=== PATIENT | female | born 1970 | race Caucasian/White ===

== ENCOUNTER 2016-11-26 09:40 | Inpatient (IN) | payer MEDICARE ==
[2016-11-21 14:40] LABS: HEMATOCRIT 39.7 % (36.0-48.0); HEMOGLOBIN 13.4 g/dL (12.0-16.0)
--- NOTE | ~2016-11-26 | OP ---
Record Of Operation [facility] [address] [place]. [address] NAME: BRITNI CHEN : 68 STATUS : ADM IN PAT#: [id number] AGE: 46 ADM/REG DATE : 11/26/16 MR#: [id number] REPORT SERV DATE: 11/29/16 DICTATED BY: NATAN REYES DATE: 11/28/16 REPORT STATUS : Draft TRANSCRIBED BY: MODL DATE: 11/28/16 DATE OF PROCEDURE: 11/28/2016 POSTOPERATIVE DIAGNOSES: Progressive scoliosis flat back deformity, L1-S1 disk disease and stenosis, and lumbar radiculopathy. POSTOPERATIVE DIAGNOSES: Progressive scoliosis flat back deformity, L1-S1 disk disease and stenosis, and lumbar radiculopathy. PROCEDURE: 1. L1-S1 laminectomy and bilateral foraminotomies for decompression of the L1 through S1 nerve roots. 2. T12 to ilium posterolateral fusion. 3. Use of local morcellized autograft. 4. Use of allograft bone matrix. 5. Neuromonitoring. 6. Correction of coronal and sagittal plane deformity. 7. Completion of segmental spinal instrumentation, T10 to the ilium (pedicle screws from T10 to the ilium were placed on 11/26/2016 for the first stage to this procedure. Today, rods were placed over the screws and connected to the screws as well as placement of 2 crosslink devices). SURGEON: Natan Reyes DO. ANESTHESIA: General. ESTIMATED BLOOD LOSS: 600 mL. COMPLICATIONS: None. INDICATIONS: The patient is a 46-year-old with intractable back pain, gait disturbance, and progressive deformity. After discussion of risks and benefits, elected to proceed with surgery. PROCEDURE IN DETAIL: I identified the patient in the holding area. Consent was obtained. Went to the operating room. Underwent general anesthesia with endotracheal intubation. Prepped and draped in the usual sterile fashion. Operative safety pause was performed, then we proceeded with surgery. A midline longitudinal incision was made through the previous incision from the initial stage of the procedure. Previously placed sutures were removed. Self-retaining retractors were placed. A rongeur was used to remove spinous processes and underlying lamina L1 down to S1. Lester removed remaining lamina, underlying ligamentum flavum, and performed foraminotomies and facetectomies L1-S1, decompressed the L1-S1 nerve roots as well as to facilitate correction of coronal and sagittal plane deformity. Rods were then cut and contoured to appropriate shape and length, placed over the screws and the screws were reduced to the rods to correct both the sagittal and coronal plane deformity restoring normal lordotic curvature. Setscrews were placed and final tightened. Two Record Of Operation [facility] [id number] [place]. [address] NAME: BRITNI CHEN : 68 STATUS : ADM IN PAT#: [id number] AGE: 46 ADM/REG DATE : 11/26/16 MR#: [id number] REPORT SERV DATE: 11/29/16 DICTATED BY: NATAN REYES DATE: 11/28/16 REPORT STATUS : Draft TRANSCRIBED BY: CHET DATE: 11/28/16 crosslinks devices were added to connect the rods to provide additional torsional resistance. High-speed decorticating nelly was used to decorticate the remaining bony surfaces T10 to the ilium. Irrigation performed. Hemostasis achieved. Final AP and lateral fluoroscopic images were obtained to verify good placement of instrumentation and good correction of deformity. Subfascial drain was placed. Local morcellized autograft and allograft bone matrix were packed over the decorticated surfaces T10 to the ilium bilaterally. Subfascial drain was placed. A gram of vancomycin powder sprinkled over the surgical wound. Layered closure performed. Sterile dressings applied. The patient was awoken and extubated taken to the recovery room in stable condition. OPERATIVE FINDINGS: Scoliosis flat back deformity. L1-S1 disk disease and stenosis with severe nerve compression. No sustained neuromonitoring alerts occurred during the case. SWETHA/CHET Natan Reyes, / [id number]
--- NOTE | ~2016-11-26 | OP ---
Record Of Operation [facility] [address] [place]. [address] NAME: BRITNI CHEN : 68 STATUS : ADM IN PAT#: [id number] AGE: 46 ADM/REG DATE : 11/26/16 MR#: [id number] REPORT SERV DATE: 11/26/16 DICTATED BY: NATAN REYES DATE: 11/26/16 REPORT STATUS : Draft TRANSCRIBED BY: MODL DATE: 11/26/16 DATE OF PROCEDURE: 11/26/2016 PREOPERATIVE DIAGNOSES: Scoliosis with flat back deformity, L1-S1 degenerative disk disease and stenosis, lumbar radiculopathy. POSTOPERATIVE DIAGNOSES: Scoliosis with flat back deformity, L1-S1 degenerative disk disease and stenosis, lumbar radiculopathy. PROCEDURE: T10 to the ilium segmental spinal instrumentation, use of intraoperative O-arm CT scan with computer navigation and neuromonitoring. SURGEON: Natan Reyes DO ANESTHESIA: General. ESTIMATED BLOOD LOSS: 600 mL. COMPLICATIONS: None. INDICATIONS: The patient is a 46-year-old with progressive scoliosis and flat back deformity with lumbar radiculopathy. Failed conservative treatment. After discussion of risks and benefits, and progressive deformity, elected to proceed with surgery. PROCEDURE IN DETAIL: I identified the patient in the holding area. Consent was obtained. Went to the operating room. Underwent general anesthesia with endotracheal intubation. Prepped and draped in the usual sterile fashion. Operative safety pause was performed, then we proceeded. A midline longitudinal incision was made from T10 down to the sacrum. Paraspinous muscles were subperiosteally elevated to the tips of transverse processes. Self retaining retractors were placed. O-arm registration frame was placed on spinous process. O-arm was brought in for intraoperative CT scan. Computer registration materials were verified. Under computer guidance, pedicle screws from [employer] were placed from T10 to the sacrum and into the S2 alar iliac screw as well. O-arm was brought back in to verify good position of the instrumentation. At this point, due to the amount of blood loss, I decided to stage the procedure. Irrigation was performed. Hemostasis achieved. A gram of vancomycin powder sprinkled over the surgical wound. Layered closure performed over a drain. Sterile dressings applied. The patient awoke and extubated, taken to the recovery room in stable condition. OPERATIVE FINDINGS: Scoliosis with degenerative disk disease. No sustained neuromonitoring alerts occurred. PLAN: Let the patient equilibrate hemodynamically and return to the operating room on for the decompression and posterolateral fusion and connection of the screws to the rods. Record Of Operation [address] [address] NAME: BRITNI CHEN : 68 STATUS : ADM IN PAT#: [id number] AGE: 46 ADM/REG DATE : 11/26/16 MR#: [id number] REPORT SERV DATE: 11/26/16 DICTATED BY: NATAN REYES DATE: 11/26/16 REPORT STATUS : Draft TRANSCRIBED BY: CHET DATE: 11/26/16 SWETHA/CHET Natan Reyes DO / [id number] CC: Natan Reyes DO
--- NOTE | ~2016-11-26 | DS ---
Discharge Summary [facility] [address] [facility] [place]. [address] NAME: BRITNI CHEN : 68 STATUS : DIS IN PAT#: [id number] AGE: 46 ADM/REG DATE : 11/26/16 MR#: [id number] REPORT SERV DATE: 12/12/16 DICTATED BY: NATAN REYES DATE: 12/11/16 REPORT STATUS : Draft TRANSCRIBED BY: CHET DATE: 12/11/16 Data Collection from hospitalization DISCHARGE DIAGNOSES: 1. Scoliosis with flat back deformity. 2. L1-S1 degenerative disk disease and stenosis. 3. Lumbar radiculopathy. 4. Neuropathy. 5. Left ear hearing loss. 6. Osteoarthritis. 7. Irritable bowel syndrome. 8. Asthma. 9. Chronic obstructive pulmonary disease. 10.Fibromyalgia. 11.Gastroenteritis. 12.Anxiety and depression. CONSULTATIONS: Raisa Shine NP. PROCEDURES PERFORMED: 1. T10 to the ilium segmental spinal instrumentation using intraoperative O-arm CT scan with computer navigation and neuromonitoring, 11/26/2016. 2. L1-S1 laminectomy and bilateral foraminotomies for decompression of L1 through S1 nerve roots; T12 to ilium posterolateral fusion; use of local morcellized autograft; use of allograft bone matrix, neuromonitoring; correction of coronal and sagittal plane deformity; completion of segmental spinal instrumentation T10 to the ilium (pedicle screws from T10 to the ilium were placed on 11/26/2016 for the first stage to this procedure, rods were placed over the screws and connected to the screws as well as placement of two cross-link devices), 11/28/2016. PATHOLOGY: Vertebral bone and soft tissue lumbar spine-no specific microscopic abnormality. Bone and soft tissue, thoracic/lumbar spine excision-cartilage, bone and skeletal muscle. DISCHARGE MEDICATIONS: ProAir three puffs via inhaler twice a day, Lioresal 10 mg three times a day, Valium 10 mg four times a day, Neurontin 800 mg four times a day, Cortef 20 mg daily, Dilaudid 4 mg every four hours as needed, Phenergan 25 mg four times a day, Zoloft 100 mg twice a day. CONDITION AT DISCHARGE: Stable. DISPOSITION: The patient was discharged home on a regular diet with a protein shake with each meal and activities as instructed. She would follow up with Dr. Natan Reyes, 12/05/2016. She would follow up with Dr. Paptio Oconnor as instructed. HOSPITAL COURSE: This is a 46-year-old female, who had intractable back pain and paresthesias in both feet. She had failed multiple attempts at conservative treatment. She does have degenerative scoliosis as well as positive sagittal balance and has trouble with ambulating. Treatment options were discussed and it was elected to proceed with surgical Discharge Summary [address] [address] NAME: BRITNI CHEN : 68 STATUS : DIS IN PAT#: [id number] AGE: 46 ADM/REG DATE : 11/26/16 MR#: [id number] REPORT SERV DATE: 12/12/16 DICTATED BY: NATAN REYES DATE: 12/11/16 REPORT STATUS : Draft TRANSCRIBED BY: CHET DATE: 12/11/16 intervention. She was admitted to the hospital at this time for further evaluation and treatment. Upon admission, she was taken to the operating room, where she underwent the above-mentioned procedure. She tolerated this well and there were no complications. Postoperatively, she was seen by Raisa Shine regarding COPD and asthma. The patient also had hypotension and elevated glucose. White blood cell count was 19.1. The patient was on LOCOMOTIVE FIRER. This was going to be placed on hold until we could stabilize her blood pressure. She received a normal saline IV bolus. We were going to check a cortisol level that morning. Valium would be given as needed and we would hold this for sedation. She was on 3 L of nasal cannula at present. Albuterol would be continued daily. DuoNeb were added as needed for shortness of breath and wheezing. Continuous O2 saturation would be provided to keep her O2 saturation greater than 92%, especially while she was on a LOCOMOTIVE FIRER. It was felt that the patient most likely receive steroids and surgery. She does not have a history of being diabetic. D5 and half-normal saline infusion was discontinued. Hemoglobin A1c was going to be checked. IV fluids were changed to 1/2 normal saline. Zoloft was continued. Baclofen and Neurontin were continued following day. She was complaining of severe pain. She was hypotensive. ACTH test was going to be obtained. Lactic acid was negative. Procalcitonin was negative. Cortisol level was 0.7. White count had decreased to 10. Protonix was added. She was evaluated by Physical Therapy. On 11/28/2016, she was taken to the operating room, where she underwent the above-mentioned procedure. She tolerated this well and there were no complications. On the , she was reevaluated by Physical therapy. Systolic blood pressure ranged in the 90s-100s. She remained on IV steroids secondary to stress with surgery. These would likely be decreased the following day. White count was 14.3. On the , the patient was transfused. She felt like her pain was somewhat controlled with the LOCOMOTIVE FIRER. Discharge planning was performed. She did have some delirium from the Dilaudid during the night. She was transfused one unit of packed red blood cells. IV hydrocortisone was being given. Zoloft was continued. Neurontin was continued. She was encouraged to mobilize with Physical Therapy. Discharge planning continued as well. Her expected postop anemia had improved. We encouraged her to use incentive spirometry and albuterol aerosols were being provided. On 12/02/2016, she was up sitting on the side of the bed. She did have a bowel movement. Hydrocortisone was discontinued. Steroids were reduced. Discharge instructions were given. Due to her improved and stable condition, she was discharged home with the above-stated instructions. Information collected by: Rosalia Powell I submit the above information as my discharge summary. TYLER/CHET Natan Reyes, / [id number] CC: Natan Reyes, DO Discharge Summary [address] [address] NAME: BRITNI CHEN : 68 STATUS : DIS IN PAT#: [id number] AGE: 46 ADM/REG DATE : 11/26/16 MR#: [id number] REPORT SERV DATE: 12/12/16 DICTATED BY: NATAN REYES DATE: 12/11/16 REPORT STATUS : Draft TRANSCRIBED BY: SHANELL DATE: 12/11/16 Papito Oconnor M.D.
--- NOTE | ~2016-11-26 | CN ---
Consultation Report [facility] [address] [facility] [place]. [address] NAME: BRITNI CHEN : 68 STATUS : ADM IN PAT#: [id number] AGE: 46 ADM/REG DATE : 11/26/16 MR#: [id number] REPORT SERV DATE: 11/27/16 DICTATED BY: RAISA COLEMAN DATE: 11/26/16 REPORT STATUS : Draft TRANSCRIBED BY: MODL DATE: 11/26/16 CONSULTATION DATE OF CONSULTATION: 11/26/2016 REASON FOR CONSULTATION: Consulted for COPD and asthma and as I was seeing the patient also consulted for hypotension and elevated glucose. HISTORY: This is a pleasant 46-year-old female with a history of neuropathy, osteoarthritis, asthma, COPD, fibromyalgia, degenerative scoliosis with spinal stenosis in her thoracic region as well as anxiety and depression. She presents to Dr. Natan Reyes, with intractable back pain and paresthesias to the bilateral lower extremities. She does have a history of degenerative scoliosis with trouble with ambulation at home. She is presently status post L1-S1 laminectomy with T10 to ilium fusion on 11/26/2016. The hospitalist group has been consulted to help manage her asthma as well as presently hypotension and an elevated glucose. The patient's history was obtained through careful interview with the patient coupled with Novavax review and ChartMaxx which is of minimal tonight. PAST MEDICAL HISTORY: 1. Neuropathy. 2. Left ear hearing loss. 3. Osteoarthritis. 4. Irritable bowel syndrome. 5. Colon spasms. 6. Asthma. 7. COPD. 8. Fibromyalgia. 9. Spinal stenosis of the thoracic region. 10.Gastroenteritis. 11.Anxiety. 12.Depression. 13.Degenerative scoliosis. 14.Noted last menstrual period approximately one week ago. 15.Cervical disc disease and stenosis. HOME MEDICATIONS: 1. ProAir HFA 3 puffs inhalation twice a day. 2. Baclofen 10 mg p.o. three times daily. 3. Valium 10 mg p.o. four times a day. 4. Voltaren 75 mg p.o. twice a day. 5. Neurontin 800 mg p.o. four times a day. 6. Phenergan 25 mg p.o. four times a day p.r.n. nausea. Consultation Report [facility] [address] [place]. [address] NAME: BRITNI CHEN : 68 STATUS : ADM IN PAT#: [id number] AGE: 46 ADM/REG DATE : 11/26/16 MR#: [id number] REPORT SERV DATE: 11/27/16 DICTATED BY: RAISA COLEMAN DATE: 11/26/16 REPORT STATUS : Draft TRANSCRIBED BY: MODL DATE: 11/26/16 7. Zoloft 100 mg p.o. twice a day. ALLERGIES: TO: 1. AMOXICILLIN. 2. PENICILLIN. 3. BACTRIM. SOCIAL HISTORY: The patient is for approximately 14 years, lives in a single-level home. She has to use a cane due to her severe scoliosis. She was a previous smoker, last use was 11/20/2016 for which she states she has now quit. No alcohol or illicit drug use. She has six children between her and her and six grand-children. FAMILY HISTORY: 1. Mother at 39 years old from cancer. 2. Father at age 72 with CHF. 3. Brother is . 4. One sister which is alive and healthy. SURGICAL HISTORY: 1. Left ear surgery x2 from a blunt force injury. 2. Head trauma as a child approximately 0937-0852. 3. Left ovary cyst removed in 1994. REVIEW OF SYSTEMS: Negative other than what is included in HPI. The patient is drowsy but she is alert and oriented. No complaints of shortness of breath. No nausea or vomiting. No abdominal pain. No chest pain. No fever. Displays no agitation or confusion. She is on a LACE MENDER morphine for pain control postoperatively. PHYSICAL EXAMINATION: VITAL SIGNS: From today blood pressure initially noted by nurse at 79/44 for which the patient received normal saline 500 mL bolus of fluid and her pressure is now 97/35, heart rate of 80, respiratory rate of 14, O2 saturation 93% on 3 L nasal cannula. GENERAL: This is a very pleasant 46-year-old female, resting in bed. No acute distress. She is very sleepy but she answers appropriately when asked questions. NEURO: Her head is atraumatic, normocephalic. She is alert and oriented x3. When awakened, cranial nerves are intact. Mood is appropriate. NECK: Supple. Trachea is midline. No JVD noted. No obvious thyromegaly or lymphadenopathy. EENT: Her sclerae are nonicteric. Her pupils are equal, reactive to light. Her nares are patent. Her mucous membranes are moist. Her tongue is midline. No deviation. Soft palate rises equally on phonation. CHEST: No pain with palpation. LUNGS: Clear to auscultation bilaterally. She has normal respiratory effort but she is diminished in the bases. I have instructed her on use of an incentive spirometer q.1 hour Consultation Report [facility] [id number] [place]. [address] NAME: BRITNI CHEN : 68 STATUS : ADM IN PAT#: [id number] AGE: 46 ADM/REG DATE : 11/26/16 MR#: [id number] REPORT SERV DATE: 11/27/16 DICTATED BY: RAISA COLEMAN DATE: 11/26/16 REPORT STATUS : Draft TRANSCRIBED BY: CHET DATE: 11/26/16 while awake to prevent atelectasis and pneumonia. She has no increased work of breathing with conversation. She is on O2 at 3 L. CARDIOVASCULAR: S1, S2. No obvious murmurs, rubs, or gallops. She displays a regular rhythm on defensive telemetry without ectopy, rate is at 80. ABDOMEN: Soft, nontender. She does have hypoactive bowel sounds. No palpable organomegaly. Last bowel movement was 11/26/2016. EXTREMITIES: Normal distal pulses. No calf tenderness. No edema. She has bilateral TEDs and SCDs in place for DVT prophylaxis. SKIN: Warm and dry. No unusual rashes or lesions. Normal color and turgor. PSYCH: The patient is pleasant and cooperative. Appropriate mood and affect although she does have a history of depression. SURGICAL WOUND SITE: Dressing is clean, dry, and intact. She has a Davol drain that is compressed with sanguinous drainage noted. LABORATORY DATA: Sodium 141, potassium 3.7, chloride 111, BUN 11, creatinine 0.81, GFR 100, glucose 164, calcium 8.5, white blood cell 19.1, hemoglobin 11.9, hematocrit 34.9, platelets 340. She did have an x-ray on 11/26/2016 that showed shallow inspiration with minimal basilar atelectasis. Otherwise, no acute abnormality. The patient's PCP who manages her healthcare is Papito Oconnor in [place], [place]. ASSESSMENT/PLAN: 1. Hypotension. Aware. The patient is postop from a lumbar laminectomy. She has been on a LACE MENDER. The skin care therapist on hold until we can stabilize her blood pressure. She is receiving a normal saline IV bolus. We will also check a cortisol level this a.m., and she is on numerous medications for her scoliosis. We will make her Valium p.r.n. and to hold for sedation. 2. Chronic obstructive pulmonary disease and asthma. We are aware the patient is not on oxygen at home. Presently, she is on 3 L nasal cannula. We will continue her albuterol daily as taken at home. We will add DuoNeb p.r.n. for shortness of breath and wheezing. She will be on continuous O2 saturation to keep her O2 sats 92% or greater especially while she is on LACE MENDER. 3. Elevated glucose. The patient probably most likely had steroids in surgery. She does not have a history of being diabetic. We will check a blood sugar at 2 a.m., and staff can call if the blood sugar is greater than 150. She has D5 and half-normal saline infusion for IV fluids, and we will discontinue that, and we will check a hemoglobin A1c this morning, place her on electrolyte protocol and change her IV fluid to one-half normal saline since her previous sodium was 141. 4. Depression. Aware. We will continue her daily dose of Zoloft. 5. The patient has a history of neuropathy, severe degenerative scoliosis, aware. She is on baclofen and Neurontin daily. We will continue both medications and as noted before, we will make her Valium p.r.n. as needed. 6. A.M. labs; BMP, magnesium, phosphorus, CBC, hemoglobin A1c, cortisols level, and EKG. The hospitalist group would like to thank you for this consultation and let us know if we can be of further assistance. Consultation Report [facility] [id number] [place]. [address] NAME: BRITNI CHEN : 68 STATUS : ADM IN [facility]#: [id number] AGE: 46 ADM/REG DATE : 11/26/16 MR#: [id number] REPORT SERV DATE: 11/27/16 DICTATED BY: RAISA COLEMAN DATE: 11/26/16 REPORT STATUS : Draft TRANSCRIBED BY: CHET DATE: 11/26/16 /CHET Raisa Coleman NP / [id number] CC: Natan Reyes DO
--- NOTE | ~2016-11-26 | PREOPHP ---
PreOp History and Physical [facility] [address] [place]. [address] NAME: BRITNI CHEN : 68 STATUS : ADM IN PAT#: [id number] AGE: 46 ADM/REG DATE : 11/26/16 MR#: [id number] REPORT SERV DATE: 11/26/16 DICTATED BY: NATAN DAVIES DATE: 11/26/16 REPORT STATUS : Draft TRANSCRIBED BY: CHET DATE: 11/26/16 CHIEF COMPLAINT: Back pain. HISTORY OF PRESENT ILLNESS: The patient is a 46-year-old female with intractable back pain and paresthesias into both feet. She has failed multiple attempts at conservative treatment including medications, physical therapy, steroid injections. She does have a degenerative scoliosis as well as positive sagittal balance and has trouble with ambulating. After discussion of risks and benefits, she elected to proceed with surgical intervention. REVIEW OF SYSTEMS: She denies chest pain, shortness of breath, and bowel or bladder changes. ALLERGIES: AMOXICILLIN AND PENICILLIN. HOME MEDICATIONS: Baclofen, Valium, diclofenac, gabapentin, ProAir, promethazine, sertraline. FAMILY HISTORY: Noncontributory. PAST MEDICAL HISTORY: Includes anxiety, osteoarthritis, depression, and asthma. PHYSICAL EXAMINATION: VITAL SIGNS: Height 5 feet 4 inches, weight 149. BMI 25.6. GENERAL: The patient is healthy appearing, in no acute distress. PSYCH: Alert and oriented x3. Normal mood and affect. Gait is antalgic. VASCULAR: No extremity swelling. SPINE: She is forward flexed. HEART: Regular rate and rhythm. LUNGS: Clear to auscultation. ABDOMEN: Soft, nontender, nondistended. Good bowel sounds. BREASTS AND RECTAL: Both deferred. NEUROLOGIC: Strength in lower extremities remains globally intact. No focal deficits. IMAGING: The patient does have scoliosis with a positive sagittal balance. She has diffuse degenerative disk disease throughout the lumbar spine. ASSESSMENT: Cervical disk disease and stenosis with scoliosis and a positive sagittal balance, intractable back pain, gait disturbance. PLAN: The patient presents today for surgical intervention. Consent was obtained. All questions were answered. She is ready to proceed with surgical intervention. SWETHA/CHET Natan Lyman PreOp History and Physical [address] [address] NAME: BRITNI CHEN : 68 STATUS : ADM IN PAT#: [id number] AGE: 46 ADM/REG DATE : 11/26/16 MR#: [id number] REPORT SERV DATE: 11/26/16 DICTATED BY: NATAN DAVIES DATE: 11/26/16 REPORT STATUS : Draft TRANSCRIBED BY: MODL DATE: 11/26/16 DO Eric / [id number] CC: DO Papito Rollins M.D.
[~2016-11-26 09:40] MED LIST: LIOR10 PO; NEUR800 PO; PR25 PO; PROAIR HFA INH; VALIUM10 MG PO; VOLT75 PO; ZOL100 PO
[2016-11-26 17:20] LABS: BASOPHILS 0.1 %; BASOPHILS ABSOLUTE 0.02 10/3/uL (0.0-0.16); EOSINOPHILS 0.2 %; EOSINOPHILS ABSOLUTE 0.03 10/3/uL (0.0-0.53); HEMOGLOBIN 11.9 g/dL (12.0-16.0); IMMATURE GRANULOCYTES 0.8 %; IMMATURE GRANULOCYTES ABSOLUTE 0.16 10/3/uL (0.0-0.11); LYMPHOCYTES 4.9 %; LYMPHOCYTES ABSOLUTE 0.94 10/3/uL (0.67-4.30); MEAN CORPUS HGB CONC 34.1 g/dL (32.0-36.0); MEAN CORPUSCULAR HEMOGLOB 32.5 pg (26.0-34.0); MEAN CORPUSCULAR VOLUME 95.4 fL (80-100); MEAN PLATELET VOLUME 9.4 fL (9.2-13.0); MONOCYTES 0.9 %; MONOCYTES ABSOLUTE 0.18 10/3/uL (0.21-1.20); NEUTROPHILS 93.1 %; NEUTROPHILS ABSOLUTE 17.76 10/3/uL (2.02-8.40); PLATELET COUNT 240 10/3/uL (150-400); RBC DISTRIBUTION WIDTH 15.2 % (12.0-16.0); RED CELL COUNT 3.66 10/6/uL (4.0-5.6); WHITE BLOOD CELLS 19.1 10/3/uL (4.5-10.5)
[2016-11-26 17:22] LABS: HEMATOCRIT 34.9 % (36.0-48.0); MANUAL DIFF NO %
[2016-11-26 17:31] LABS: BUN (BLOOD UREA NITROGEN) 11 MG/DL (6-23); CHLORIDE, SERUM 111 MMOL/L (96-112); CO2 (CARBON DIOXIDE) 26 MMOL/L (24-34); CREATININE 0.81 MG/DL (0.55-1.02); GFR AFRICAN AMERICAN 100 ML/MIN (>=60); GFR NON AFRICAN AMERICAN 86 ML/MIN (>=60); GLUCOSE, SERUM 164 MG/DL (60-99); POTASSIUM, SERUM 3.7 MMOL/L (3.5-5.3); SODIUM, SERUM 141 MMOL/L (135-148)
[2016-11-26 17:32] LABS: CALCIUM, SERUM 8.5 MG/DL (8.5-10.4)
[2016-11-27 04:43] LABS: BASOPHILS 0.1 %; BASOPHILS ABSOLUTE 0.01 10/3/uL (0.0-0.16); EOSINOPHILS 0.1 %; EOSINOPHILS ABSOLUTE 0.01 10/3/uL (0.0-0.53); HEMATOCRIT 28.9 % (36.0-48.0); HEMOGLOBIN 9.6 g/dL (12.0-16.0); IMMATURE GRANULOCYTES 0.3 %; IMMATURE GRANULOCYTES ABSOLUTE 0.03 10/3/uL (0.0-0.11); LYMPHOCYTES 11.5 %; LYMPHOCYTES ABSOLUTE 1.17 10/3/uL (0.67-4.30); MANUAL DIFF NO %; MEAN CORPUS HGB CONC 33.2 g/dL (32.0-36.0); MEAN CORPUSCULAR HEMOGLOB 32.4 pg (26.0-34.0); MEAN CORPUSCULAR VOLUME 97.6 fL (80-100); MEAN PLATELET VOLUME 9.6 fL (9.2-13.0); MONOCYTES 5.5 %; MONOCYTES ABSOLUTE 0.56 10/3/uL (0.21-1.20); NEUTROPHILS 82.5 %; NEUTROPHILS ABSOLUTE 8.42 10/3/uL (2.02-8.40); PLATELET COUNT 199 10/3/uL (150-400); RBC DISTRIBUTION WIDTH 15.4 % (12.0-16.0); RED CELL COUNT 2.96 10/6/uL (4.0-5.6); WHITE BLOOD CELLS 10.2 10/3/uL (4.5-10.5)
[2016-11-27 04:58] LABS: BUN (BLOOD UREA NITROGEN) 8 MG/DL (6-23); CALCIUM, SERUM 7.6 MG/DL (8.5-10.4); CHLORIDE, SERUM 113 MMOL/L (96-112); CO2 (CARBON DIOXIDE) 28 MMOL/L (24-34); CREATININE 0.61 MG/DL (0.55-1.02); GFR AFRICAN AMERICAN 125 ML/MIN (>=60); GFR NON AFRICAN AMERICAN 108 ML/MIN (>=60); PHOSPHORUS, SERUM 2.9 MG/DL (2.5-4.5); POTASSIUM, SERUM 4.4 MMOL/L (3.5-5.3); SODIUM, SERUM 145 MMOL/L (135-148)
[2016-11-27 05:00] LABS: GLUCOSE, SERUM 93 MG/DL (60-99)
[2016-11-27 06:10] LABS: PROCALCITONIN <0.05 ng/mL (<0.5)
[2016-11-28 04:12] LABS: BASOPHILS 0.1 %; BASOPHILS ABSOLUTE 0.01 10/3/uL (0.0-0.16); EOSINOPHILS 0 %; HEMATOCRIT 26.2 % (36.0-48.0); HEMOGLOBIN 8.9 g/dL (12.0-16.0); IMMATURE GRANULOCYTES 0.3 %; IMMATURE GRANULOCYTES ABSOLUTE 0.03 10/3/uL (0.0-0.11); LYMPHOCYTES 3.6 %; LYMPHOCYTES ABSOLUTE 0.41 10/3/uL (0.67-4.30); MEAN CORPUSCULAR HEMOGLOB 32.5 pg (26.0-34.0); MEAN CORPUSCULAR VOLUME 95.6 fL (80-100); MEAN PLATELET VOLUME 9.7 fL (9.2-13.0); MONOCYTES ABSOLUTE 0.45 10/3/uL (0.21-1.20); NEUTROPHILS ABSOLUTE 10.46 10/3/uL (2.02-8.40); PLATELET COUNT 190 10/3/uL (150-400); RBC DISTRIBUTION WIDTH 15.2 % (12.0-16.0); RED CELL COUNT 2.74 10/6/uL (4.0-5.6); WHITE BLOOD CELLS 11.4 10/3/uL (4.5-10.5)
[2016-11-28 04:15] LABS: MANUAL DIFF NO %
[2016-11-28 04:25] LABS: CHLORIDE, SERUM 108 MMOL/L (96-112); CO2 (CARBON DIOXIDE) 27 MMOL/L (24-34); CREATININE 0.61 MG/DL (0.55-1.02); GFR AFRICAN AMERICAN 125 ML/MIN (>=60); GFR NON AFRICAN AMERICAN 108 ML/MIN (>=60); POTASSIUM, SERUM 3.9 MMOL/L (3.5-5.3); SODIUM, SERUM 142 MMOL/L (135-148)
[2016-11-28 04:27] LABS: BUN (BLOOD UREA NITROGEN) 4 MG/DL (6-23); CALCIUM, SERUM 8.6 MG/DL (8.5-10.4); GLUCOSE, SERUM 122 MG/DL (60-99)
[2016-11-28 10:54] LABS: HEMOGLOBIN 7.7 g/dL (12.0-16.0)
[2016-11-28 10:55] LABS: HEMATOCRIT 22.7 % (36.0-48.0)
[2016-11-28 11:01] LABS: BASOPHILS 0.1 %; BASOPHILS ABSOLUTE 0.01 10/3/uL (0.0-0.16); EOSINOPHILS 0.1 %; EOSINOPHILS ABSOLUTE 0.01 10/3/uL (0.0-0.53); HEMATOCRIT 21.5 % (36.0-48.0); HEMOGLOBIN 7.4 g/dL (12.0-16.0); IMMATURE GRANULOCYTES 0.5 %; IMMATURE GRANULOCYTES ABSOLUTE 0.07 10/3/uL (0.0-0.11); LYMPHOCYTES 3.9 %; LYMPHOCYTES ABSOLUTE 0.55 10/3/uL (0.67-4.30); MANUAL DIFF NO %; MEAN CORPUS HGB CONC 34.4 g/dL (32.0-36.0); MEAN CORPUSCULAR HEMOGLOB 32.7 pg (26.0-34.0); MEAN CORPUSCULAR VOLUME 95.1 fL (80-100); MEAN PLATELET VOLUME 8.8 fL (9.2-13.0); MONOCYTES 3.4 %; MONOCYTES ABSOLUTE 0.49 10/3/uL (0.21-1.20); NEUTROPHILS ABSOLUTE 13.14 10/3/uL (2.02-8.40); PLATELET COUNT 173 10/3/uL (150-400); RBC DISTRIBUTION WIDTH 15.5 % (12.0-16.0); RED CELL COUNT 2.26 10/6/uL (4.0-5.6); WHITE BLOOD CELLS 14.3 10/3/uL (4.5-10.5)
[2016-11-28 11:15] LABS: BUN (BLOOD UREA NITROGEN) 5 MG/DL (6-23); CALCIUM, SERUM 7.7 MG/DL (8.5-10.4); CHLORIDE, SERUM 112 MMOL/L (96-112); CO2 (CARBON DIOXIDE) 29 MMOL/L (24-34); CREATININE 0.54 MG/DL (0.55-1.02); GFR AFRICAN AMERICAN 130 ML/MIN (>=60); GFR NON AFRICAN AMERICAN 112 ML/MIN (>=60); POTASSIUM, SERUM 4.2 MMOL/L (3.5-5.3); SODIUM, SERUM 144 MMOL/L (135-148)
[2016-11-28 11:16] LABS: GLUCOSE, SERUM 157 MG/DL (60-99)
[2016-11-28 15:03] LABS: HEMOGLOBIN 7.2 g/dL (12.0-16.0)
[2016-11-29 04:27] LABS: BASOPHILS 0.1 %; BASOPHILS ABSOLUTE 0.01 10/3/uL (0.0-0.16); EOSINOPHILS 0 %; IMMATURE GRANULOCYTES 0.2 %; IMMATURE GRANULOCYTES ABSOLUTE 0.03 10/3/uL (0.0-0.11); LYMPHOCYTES 5.9 %; MEAN CORPUS HGB CONC 33.9 g/dL (32.0-36.0); MEAN CORPUSCULAR HEMOGLOB 32.3 pg (26.0-34.0); MEAN CORPUSCULAR VOLUME 95.2 fL (80-100); MEAN PLATELET VOLUME 9.7 fL (9.2-13.0); MONOCYTES 5.8 %; MONOCYTES ABSOLUTE 0.78 10/3/uL (0.21-1.20); NEUTROPHILS ABSOLUTE 11.87 10/3/uL (2.02-8.40); PLATELET COUNT 160 10/3/uL (150-400); RBC DISTRIBUTION WIDTH 15.1 % (12.0-16.0); RED CELL COUNT 1.89 10/6/uL (4.0-5.6); WHITE BLOOD CELLS 13.5 10/3/uL (4.5-10.5)
[2016-11-29 04:28] LABS: HEMOGLOBIN 6.1 g/dL (12.0-16.0)
[2016-11-29 04:29] LABS: MANUAL DIFF NO %
[2016-11-29 04:52] LABS: BUN (BLOOD UREA NITROGEN) 4 MG/DL (6-23); CALCIUM, SERUM 7.8 MG/DL (8.5-10.4); CHLORIDE, SERUM 108 MMOL/L (96-112); CO2 (CARBON DIOXIDE) 30 MMOL/L (24-34); CREATININE 0.51 MG/DL (0.55-1.02); GFR AFRICAN AMERICAN 133 ML/MIN (>=60); GFR NON AFRICAN AMERICAN 115 ML/MIN (>=60); GLUCOSE, SERUM 122 MG/DL (60-99); POTASSIUM, SERUM 4.1 MMOL/L (3.5-5.3); SODIUM, SERUM 142 MMOL/L (135-148)
[2016-11-30 00:09] LABS: HEMATOCRIT 22.6 % (36.0-48.0); HEMOGLOBIN 7.9 g/dL (12.0-16.0)
[2016-11-30 04:31] LABS: BASOPHILS 0 %; EOSINOPHILS 0 %; HEMATOCRIT 21.6 % (36.0-48.0); HEMOGLOBIN 7.5 g/dL (12.0-16.0); IMMATURE GRANULOCYTES 0.3 %; IMMATURE GRANULOCYTES ABSOLUTE 0.03 10/3/uL (0.0-0.11); LYMPHOCYTES 10.4 %; LYMPHOCYTES ABSOLUTE 1.04 10/3/uL (0.67-4.30); MEAN CORPUS HGB CONC 34.7 g/dL (32.0-36.0); MEAN CORPUSCULAR HEMOGLOB 31.3 pg (26.0-34.0); MEAN PLATELET VOLUME 9.5 fL (9.2-13.0); MONOCYTES 6.5 %; MONOCYTES ABSOLUTE 0.65 10/3/uL (0.21-1.20); NEUTROPHILS 82.8 %; NEUTROPHILS ABSOLUTE 8.26 10/3/uL (2.02-8.40); PLATELET COUNT 170 10/3/uL (150-400); RBC DISTRIBUTION WIDTH 17.1 % (12.0-16.0)
[2016-11-30 04:32] LABS: MANUAL DIFF NO %
[2016-11-30 04:51] LABS: CALCIUM, SERUM 8.2 MG/DL (8.5-10.4); CHLORIDE, SERUM 107 MMOL/L (96-112); CO2 (CARBON DIOXIDE) 32 MMOL/L (24-34); GFR AFRICAN AMERICAN 134 ML/MIN (>=60); GFR NON AFRICAN AMERICAN 115 ML/MIN (>=60); SODIUM, SERUM 142 MMOL/L (135-148)
[2016-11-30 04:52] LABS: BUN (BLOOD UREA NITROGEN) 8 MG/DL (6-23); GLUCOSE, SERUM 97 MG/DL (60-99)
[2016-12-01 04:52] LABS: BASOPHILS 0 %; EOSINOPHILS 0.1 %; EOSINOPHILS ABSOLUTE 0.01 10/3/uL (0.0-0.53); HEMATOCRIT 26.5 % (36.0-48.0); HEMOGLOBIN 8.9 g/dL (12.0-16.0); IMMATURE GRANULOCYTES 0.9 %; IMMATURE GRANULOCYTES ABSOLUTE 0.08 10/3/uL (0.0-0.11); LYMPHOCYTES 16.3 %; LYMPHOCYTES ABSOLUTE 1.38 10/3/uL (0.67-4.30); MEAN CORPUS HGB CONC 33.6 g/dL (32.0-36.0); MEAN CORPUSCULAR HEMOGLOB 28.5 pg (26.0-34.0); MEAN CORPUSCULAR VOLUME 84.9 fL (80-100); MONOCYTES 7.4 %; MONOCYTES ABSOLUTE 0.63 10/3/uL (0.21-1.20); NEUTROPHILS 75.3 %; NEUTROPHILS ABSOLUTE 6.36 10/3/uL (2.02-8.40); PLATELET COUNT 191 10/3/uL (150-400); RBC DISTRIBUTION WIDTH 22.4 % (12.0-16.0); RED CELL COUNT 3.12 10/6/uL (4.0-5.6); WHITE BLOOD CELLS 8.5 10/3/uL (4.5-10.5)
[2016-12-01 04:54] LABS: MANUAL DIFF NO %
[2016-12-01 05:38] LABS: MICROCYTES 1+ (5-10/OIF) (0-5/OIF); PLATELET ESTIMATE ADQ (ADEQUATE); POLYCHROMASIA 1+ (2-5/OIF) (0-1/OIF)
[2016-12-02 04:48] LABS: BASOPHILS 0.1 %; BASOPHILS ABSOLUTE 0.01 10/3/uL (0.0-0.16); EOSINOPHILS 0.8 %; EOSINOPHILS ABSOLUTE 0.06 10/3/uL (0.0-0.53); HEMATOCRIT 25.8 % (36.0-48.0); HEMOGLOBIN 8.8 g/dL (12.0-16.0); IMMATURE GRANULOCYTES 0.9 %; IMMATURE GRANULOCYTES ABSOLUTE 0.07 10/3/uL (0.0-0.11); LYMPHOCYTES 19.8 %; LYMPHOCYTES ABSOLUTE 1.48 10/3/uL (0.67-4.30); MEAN CORPUS HGB CONC 34.1 g/dL (32.0-36.0); MEAN CORPUSCULAR HEMOGLOB 29.2 pg (26.0-34.0); MEAN CORPUSCULAR VOLUME 85.7 fL (80-100); MEAN PLATELET VOLUME 9.2 fL (9.2-13.0); MONOCYTES 8.6 %; MONOCYTES ABSOLUTE 0.64 10/3/uL (0.21-1.20); NEUTROPHILS 69.8 %; NEUTROPHILS ABSOLUTE 5.21 10/3/uL (2.02-8.40); PLATELET COUNT 214 10/3/uL (150-400); RBC DISTRIBUTION WIDTH 21.6 % (12.0-16.0); RED CELL COUNT 3.01 10/6/uL (4.0-5.6); WHITE BLOOD CELLS 7.5 10/3/uL (4.5-10.5)
[2016-12-02 04:50] LABS: MANUAL DIFF NO %
[2016-12-02] MEDS ORDERED: DIL4TAB PO (12:14)
[2016-12-02] MEDS ORDERED: CORTEF20 MG PO (12:14)
== END 2016-12-02 13:58 | disposition home or self-care (01) | DRG 458 ==
LOC: SDC/OF 09:40 → 3SO 19:31
PROVIDERS: Nurse Practitioner Acute Care; Orthopaedic Surgery
PROC: 4A11X4G Monitoring of Peripheral Nervous Electrical Activity, Intraoperative, External Approach (ICD-10-PCS; 2016-11-26)
PROC: 0RG70Z1 (ICD-10-PCS; principal; 2016-11-26 11:00)
PROC: 0RGA0Z1 (ICD-10-PCS; 2016-11-26 11:00)
PROC: 0SG10Z1 (ICD-10-PCS; 2016-11-28)
PROC: 0SG30Z1 (ICD-10-PCS; 2016-11-28)
DX: M41.86 Other forms of scoliosis, lumbar region (principal); F32.9 Major depressive disorder, single episode, unspecified; F41.9 Anxiety disorder, unspecified; J44.9 Chronic obstructive pulmonary disease, unspecified
CPT/HCPCS: 36415; 71010; 80048; 82533; 82962; 83036; 83605; 83735; 84100; 84145; 84703; 85014; 85018; 85025; 86850; 86900; 86901; 86920; 87641; 88304; 88311; 93005; 94640; 97116-GP; 97162-GP; 97164-GP; 97530-GP; A9270-GY; C1713; J0690; J0834; J1170; J1644; J1720; J2250; J2270; J2370; J2405; J2710; J3010; J3370; P9016; P9047